=== PATIENT | male | born 2000 | race Caucasian/White ===

== ENCOUNTER 2021-08-09 10:36 | Emergency (ER) | payer OTHER, SELFPAY ==
[2021-08-09 10:47] VITALS: BP 138/80; PULSE 78; RESP 16; TEMP 36.1; O2SAT 100
--- NOTE | 2021-08-09 11:11 | ED.URI ---
HPI - URI/Sore Throat General Chief Complaint: Upper Respiratory Infection Stated Complaint: sore throat Source: patient and RN notes reviewed Mode of arrival: ambulatory History of Present Illness HPI Narrative: This is a 21-year-old male that presented to urgent care with complaints of throat pain that he has been having since Saturday. Patient notes that the first thing he ate was take a Covid test which was negative . He notes that his sore throat has sleep disturbance he does take Advil daily to relieve his symptoms once the Advil wears off he continues to have throat pain he is also having difficulty swallowing. 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 Patient strep was negative he will be treated off symptoms along. The patient denies SOB, CP, palpitation, extremity numbness, lightheadedness, dizziness, constipation, diarrhea, chills, or fever. MD elicited complaint: sore throat Related Data Allergies Allergy/AdvReac Type Severity Reaction Status Date / Time No Known Allergies Allergy Verified 08/09/21 10:46 Review of Systems Review of Systems: A 14 organ system Review of Systems was performed and pertinent positives included in the HPI, otherwise remaining ROS is negative. [facility] Family History Family History (Updated 08/09/21 @ 11:13 by JUAN Luther-Edi) Other Family history non-contributory Exam Narrative: GENERAL: This is a well-nourished, well-developed patient, in no apparent distress. HEAD: normocephalic, atraumatic. EYES: PERRL. Sclera clear/white. Vision is grossly intact. EARS: External ears normal, auditory canals clear and without drainage, TMs normal without perforation. Hearing grossly intact. NOSE: External nose normal with no obvious nasal discharge, nares without redness, no rhinorrhea. THROAT: Mucous membranes moist, posterior pharynx edema erythematous, edematous tonsils NECK: Neck supple, non-tender without lymphadenopathy, masses or thyromegaly. CARDIOVASCULAR: Regular rate and rhythm without murmurs, gallops, or rubs. RESPIRATORY: Clear to auscultation. Breath sounds equal bilaterally. No wheezes, rales, or rhonchi. GASTROINTESTINAL: Abdomen soft, non-tender, nondistended. Bowel sounds are active. No hepato-splenomegaly, or palpable masses. No guarding. SKIN: warm, intact with no suspicious lesions or rash, good texture and turgor. NEURO: awake, alert, and oriented to person, place and time. There were no obvious focal neurologic abnormalities. Steady gait EXTREMITIES: Normal range of motion. No edema. No calf tenderness. Negative Homans sign bilaterally. BACK: Nontender without deformity or crepitance. No flank tenderness. Course Course Emergency Course: Patient will be treated office symptoms along in positive contact with strep . Augmentin 875 mg twice daily x7 days Vital Signs Vital signs: Vital Signs Temperature 97 F L 08/09/21 10:47 Pulse Rate 78 08/09/21 10:47 Respiratory Rate 16 08/09/21 10:47 Blood Pressure 138/80 08/09/21 10:47 Pulse Oximetry 100 08/09/21 10:47 Temperature 97 F L 08/09/21 10:47 Pulse Rate 78 08/09/21 10:47 Respiratory Rate 16 08/09/21 10:47 Blood Pressure 138/80 08/09/21 10:47 Pulse Oximetry 100 08/09/21 10:47 MDM - URI/Sore Throat Differential Diagnosis Differential diagnosis: Likely upper respiratory infection and pharyngitis Lab Data Attestation: I reviewed the patient's lab results. Labs: Strep Screen Presumptive Negative *(Reference Range: Negative)* Discharge Plan Discharge Clinical Impression: Pharyngitis Qualifiers: Pharyngitis/tonsillitis etiology: unspecified etiology Qualified Code(s): J02.9 - Acute pharyngitis, unspecified Patient Disposition: Home, Self-Care Condition: Stable Instructions: Antibiotic Form, Pharyngitis (ED) Additional Instructions: -Eat
== END 2021-08-09 11:30 | disposition home or self-care (01) ==
PROVIDERS: Emergency Provider Nurse Practitioner
DX: J02.9 Acute pharyngitis, unspecified (principal)
CPT/HCPCS: 87081; 87880; 99213; G0463